=== PATIENT | male | born 1975 | race Caucasian/White ===

== ENCOUNTER 2019-12-28 12:14 | Emergency (ER) | payer OTHER, SELFPAY ==
--- NOTE | ~2019-12-28 | CT_ITS ---
EXAMINATION: CT abdomen pelvis wo con DATE: 12/28/2019 14:24 INDICATION: Abdominal pain. Hematuria. TECHNIQUE: Computed tomography (CT) of the abdomen and pelvis was performed without intravenous contr ast. Automated exposure control and iterative reconstruction technique were employed. Exam dose: 123 0.42 mGy-cm total exam DLP. COMPARISON: None. FINDINGS: Occasional pneumatoceles are noted in the lower lung zones. No pulmonary infiltrate or cons olidation or pulmonary mass lesion is identified. Normal heart size. No pericardial or pleural effusion. The liver, spleen, gallbladder, bile ducts, pancreas, pancreatic duct, and adrenal glands and kidneys are unremarkable. No urinary tract calculus or hydroureteronephrosis is detected. Normal caliber of the abdominal aorta. Normal appendix. There is no evidence of appendicitis. No bowel obstruction or intraperitoneal free a ir. There are some nonspecific right lower quadrant mesenteric lymph nodes measuring up to approximat lui 10 x 21 mm. No periaortic or aortocaval or pelvic lymphadenopathy. No ascites. No bowel obstruction or intraperitoneal free air. There is a small fat-containing left inguinal hernia. There is a fat-containing umbilical hernia and another fat-containing periumbilical hernia. Diffuse idiopathic skeletal hyperostosis of the lower thoracic spine. No suspicious osteolytic or ost eoblastic lesions are noted. IMPRESSION: Mildly prominent right lower quadrant mesenteric lymph nodes, possibly secondary to mese nteric adenitis Normal appendix No urinary tract calculus or hydroureteronephrosis Reviewed, dictated and finalized at [facility]. Reviewed, dictated and finalized at location [facility]. IMPRESSION: Mildly prominent right lower quadrant mesenteric lymph nodes, poss ibly secondary to mesenteric adenitis Normal appendix No urinary tract calculus or hydroureteronephrosis
[2019-12-28 12:23] VITALS: BP 146/99; PULSE 69; RESP 16; TEMP 36.9; O2SAT 99
--- NOTE | 2019-12-28 12:34 | PC.NURSE ---
Reports blood in urine at 0730, denies any since.
[2019-12-28 13:35] LABS: Add Urine Microscopic? YES; Appearance Urine Clear (Clear); Bilirubin Urine Negative (Negative); Blood Urine 1+ (Negative); Color Urine Yellow (Yellow); Glucose Urine UA Negative (Negative); Ketones Urine Negative (Negative); Leukocyte Esterase Ur Negative LEU/UL (Negative); Mucus Urine Rare /lpf; Nitrate Urine Negative (Negative); Protein Urine Negative (Negative); RBC Urine 21-50 /hpf (0-2); Squamous Epithelial Cell Urine Few /hpf (Few); Urobilinogen Urine Negative mg/dL (<2.0); WBC Urine 0-3 /hpf
[2019-12-28 13:38] LABS: Basophils Absolute Auto 0.1 K/mm3 (0.0-0.1); Basophils Percent Auto 0.8 % (0.2-1.2); Eosinophils Absolute Auto 0.2 K/mm3 (0-0.3); Eosinophils Percent Auto 3.5 % (0-4.4); Hematocrit 46.4 % (42.0-52.0); Hemoglobin 15.8 g/dL (14.0-18.0); Immature Granulocyte Absolute 0.01 K/mm3 (0.00-0.031); Immature Granulocyte Percent A 0.2 % (0-0.5); Lymphocytes Absolute Auto 2.59 K/mm3 (0.9-3.2); Lymphocytes Percent Auto 39.3 % (18.3-44.2); Mean Corpuscular HGB Conc 34.1 g/dl (32-36); Mean Corpuscular Hemoglobin 32.3 pg (26-34); Mean Corpuscular Volume 94.9 fl (80-100); Mean Platelet Volume 10.2 fl (7.4-10.4); Monocytes Absolute Auto 0.5 K/mm3 (0.1-0.6); Monocytes Percent Auto 7.9 % (2.6-8.5); Neutrophils Absolute Auto 3.2 K/mm3 (1.3-6.7); Neutrophils Percent Auto 48.3 % (45.5-73.1); Platelet Count Result 216 k/mm3 (150-375); Red Blood Count 4.89 M/mm3 (4.6-6.20); Red Cell Distribution Width 13.5 % (11.5-14.5); White Blood Count 6.6 K/mm3 (4.5-10.0)
--- NOTE | 2019-12-28 13:47 | ED.ABDPAIN ---
HPI - Abdominal Pain General Chief Complaint: Urogenital-Male Stated Complaint: bloody urine, hernial Time Seen by Provider: 12/28/19 13:04 Source: patient Mode of arrival: ambulatory History of Present Illness HPI narrative: Patient is a 44-year-old male who presents to emergency department for evaluation of blood in his urine this morning which has resolved also noting some periumbilical abdominal discomfort during this. Patient presents in no distress patient notes history of umbilical hernia denies any history of urinary symptoms. Patient on arrival in the room in no distress denies injury or trauma MD elicited complaint: abdominal pain Related Data Home Medications Medication Instructions Recorded Confirmed naproxen 500 mg tablet 500 mg PO DAILY tablet 08/20/19 pantoprazole 40 mg tablet,delayed 40 mg PO QAM 08/20/19 release sildenafil 25 mg tablet 25 mg PO DAILY PRN 08/20/19 testosterone 50 mg/5 gram (1 %) 1 packet TRANSDERM DAILY 08/20/19 transdermal gel Allergies Allergy/AdvReac Type Severity Reaction Status Date / Time Penicillins Allergy Unknown Unknown Verified 05/10/19 14:08 Review of Systems Review of Systems: All systems reviewed & are unremarkable except as noted in HPI and below PMFSH Family History Family History (Updated 09/04/19 @ 12:46 by Gabriela Mcconnell, [facility]) Father Carcinoma of colon COPD (chronic obstructive pulmonary disease) Mother Patient's mother is Cerebrovascular accident Social History Social History Smoking status: Current some day smoker Tobacco type: cigarettes Second hand tobacco smoke exposure: No Alcohol intake: current 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 HEAD: Normocephalic, atraumatic. EYES: PERRLA and EOMI. ENT: Nares clear, no rhinorrhea or epistaxis. Mucous membranes moist. CHEST: Clear to auscultation. No respiratory distress. No wheezes rales or rhonchi HEART: Regular rate and rhythm. No murmur heard. Normal peripheral pulses. ABDOMEN: Soft, periumbilical hernia that is easily reducible, nondistended EXTREMITIES: Normal range of motion. No edema. SKIN: Warm, dry, no rash. NEURO: No focal deficits. Alert and oriented x3. PSYCH: Normal mood and affect. Course Course Emergency Course: Patient in the room in no distress aware of case findings treatment plan and diagnosis agreeing to follow-up as directed or to return if symptoms worsen or Vital Signs Vital signs: Vital Signs Temperature 98.5 F 12/28/19 12:23 Pulse Rate 69 12/28/19 12:23 Respiratory Rate 16 12/28/19 12:23 Blood Pressure 146/99 H 12/28/19 12:23 Pulse Oximetry 99 12/28/19 12:23 Temperature 98.5 F 12/28/19 12:23 Pulse Rate 69 12/28/19 12:23 Respiratory Rate 16 12/28/19 12:23 Blood Pressure 146/99 H 12/28/19 12:23 Pulse Oximetry 99 12/28/19 12:23 MDM - Abdominal Pain MDM Narrative Medical decision making narrative: Patient aware of case findings treatment plan and diagnosis agreeing to follow-up as directed or to return if symptoms worsen or concerns. Patient hydrated in the emergency department resting comfortably afebrile nontoxic appearing no high risk changes in the blood work or imaging advised to follow with urology for further evaluation of his hematuria Lab Data Result diagrams: 12/28/19 13:32 12/28/19 13:32 Labs: Lab Results 12/28/19 12/28/19 12/28/19 Range/Units 13:26 13:32 13:32 WBC 6.6 (4.5-10.0) K/mm3 RBC 4.89 (4.6-6.20) M/mm3 Hgb 15.8 (14.0-18.0) g/dL Hct 46.4 (42.0-52.0) % MCV 94.9 (80-100) fl MCH 32.3 (26-34) pg MCHC 34.1 (32-36) g/dl RDW 13.5 (11.5-14.5) % Plt Count 216 (150-375) k/mm3 MP
[2019-12-28 13:52] LABS: Blood Urea Nitrogen 10 mg/dL (9-20); Calcium 9.5 mg/dL (8.4-10.2); Carbon Dioxide 27 mmol/L (22-30); Chloride 103 mmol/L (98-107); Estimated CRCL calculation 129 ml/min; Estimated Glomerular Filt Rate > 60; Glucose 94 mg/dL (75-110); Potassium 4.3 mmol/L (3.4-5.0); Sodium 137 mmol/L (137-145)
== END 2019-12-28 15:20 | disposition home or self-care (01) ==
PROVIDERS: Emergency Medicine Emergency Medical Services; Emergency Provider Emergency Medicine; PCP Physician Assistant
DX: R10.33 Periumbilical pain (principal); R31.9 Hematuria, unspecified; F17.210 Nicotine dependence, cigarettes, uncomplicated
CPT/HCPCS: 36415; 74176; 80048; 81001; 85025; 99284

== ENCOUNTER 2020-08-30 01:09 | Outpatient (CLI) | payer OTHER, SELFPAY ==
[2020-08-30 19:10] LABS: SARS-CoV-2 RNA PCR Negative
== END 2020-08-30 01:10 | disposition home or self-care (01) ==
LOC: ANHCOVIDDT 01:09
PROVIDERS: PCP Physician Assistant; Visit Provider Surgery
DX: Z01.818 Encounter for other preprocedural examination (principal); Z20.828 Contact with and (suspected) exposure to other viral communicable diseases
CPT/HCPCS: 87635; C9803; U0003

== ENCOUNTER 2020-09-02 00:46 | Day surgery (SDC) | payer OTHER, SELFPAY ==
[2020-08-25 13:34] VITALS: BMI 31.4
[2020-09-02] VITALS (9 sets, daily range): BP systolic 114–144; BP diastolic 78–96; PULSE 62–79; RESP 8–20; TEMP 36.2–36.7; O2SAT 95–100
--- NOTE | 2020-09-02 08:32 | WPDANESEPPF ---
Anes - Initial Pre Proc Eval Procedure: Operation Date: 09/02/20 11:00 Proposed Procedures p Laparoscopic Incarcerated Ventral Hernia Repair with Mesh, Davinci Assisted - Adin Carson DO Date/Time: 09/02/20 08:32 Surgeon: Adin Carson DO Pre Op Diagnosis: incarcerated ventral hernia Patient Data Age: 44 Gender: M Height: 1.83 m Weight: 105 kg Allergies Allergy/AdvReac Type Severity Reaction Status Date / Time Penicillins Allergy Unknown Unknown Verified 09/02/20 09:19 Home Medications Medication Instructions Recorded Confirmed Type irbesartan 150 2 tablet PO DAILY #180 tablet 07/09/20 09/02/20 Rx mg-hydrochlorothiazide 12.5 mg tablet sildenafil 25 mg tablet 100 mg PO DAILY PRN #30 tablet 07/09/20 08/25/20 Rx pantoprazole 40 mg PO QAM 08/25/20 09/02/20 History Patient hx anesthesia problems: none Family hx anesthesia problems: none [facility] Past Medical History Medical History (Updated 09/02/20 @ 10:16 by Jason Damon DO) GERD (gastroesophageal reflux disease) Hernia, inguinal, right Hypertension Surgical History Surgical History History of right inguinal hernia repair 12-14 years ago in [place] Hx of tonsillectomy Family History Family History Father Carcinoma of colon COPD (chronic obstructive pulmonary disease) Mother Patient's mother is Cerebrovascular accident Social History Social History Smoking packs per day: 1 Smoking cigarettes per day: 20.0 Years smoked: 20 Smoking pack-years: 20.00 Smoking status: Heavy tobacco smoker Tobacco type: cigarettes and e-cigarettes/vaping Second hand tobacco smoke exposure: No Alcohol intake: current Drinks per week: 10 Living arrangements: with friend(s) 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 Questions were solicited and answers provided to the satisfaction of the patient/family/POA.
--- NOTE | 2020-09-02 09:10 | ECG_ITS ---
Measurements Intervals [place] Rate: 64 P: -45 TN: 167 QRS: 48 QRSD: 92 T: 41 QT: 386 QTc: 401 Interpretive Statements SINUS RHYTHM NORMAL ECG Electronically Signed On 09-02-2020 9:40:20 [employer] by Louie Govea D.O.
[2020-09-02] MEDS: ACETAMINOPHEN 500 MG TABLET 1000 MG PO (09:25)
[2020-09-02] MEDS: LACTATED RINGERS 1,000 ML 30 ML IV CONT ×2 (09:25→14:40)
[2020-09-02] MEDS: KETOROLAC 15 MG/ML VIAL (*BKC) IV PUSH (09:34)
[2020-09-02 09:55] LABS: Anion Gap 6 mmol/L (8-16); Blood Urea Nitrogen 23 mg/dL (9-20); Calcium 9.8 mg/dL (8.4-10.2); Carbon Dioxide 27 mmol/L (22-30); Chloride 106 mmol/L (98-107); Estimated CRCL calculation 118 ml/min; Estimated Glomerular Filt Rate > 60; Glucose 111 mg/dL (75-110); Potassium 4.1 mmol/L (3.4-5.0); Sodium 139 mmol/L (137-145)
--- NOTE | 2020-09-02 11:07 | SUR.PREOP ---
pt informed of delay w/surgeon/acknowledges understanding/ s/o informed by pt of delay at this time via personal cellphone. comfort measures offered/denies needs.
--- NOTE | 2020-09-02 11:17 | PM.IMHP ---
H&P: HPI History of Present Illness Date/Time: 09/02/20 11:17 Chief complaint: incarcerated ventral hernia Narrative: Vincent Restrepo is a 44 year old male who presents for incarcerated ventral hernia repair. He reports no changes since seen in office. Review of Systems Review of Systems: All systems reviewed & are unremarkable except as noted in HPI and below Constitutional: Constitutional: Denies chills, Denies fever(s), Denies headache(s) and Denies weight loss Eyes: Eyes: Denies change in vision ENT: Denies dizziness, Denies headache(s), Denies neck mass and Denies throat swelling Cardiovascular: Cardiovascular: Denies chest pain, Denies lightheadedness and Denies dyspnea Respiratory: Respiratory: Denies cough, Denies dyspnea and Denies wheezing Gastrointestinal: Gastrointestinal: Denies abdominal pain, Denies change in bowel habits, Denies nausea and Denies vomiting Genitourinary: Genitourinary: Denies hematuria and Denies dysuria Musculoskeletal: Musculoskeletal: Reports as per HPI Integumentary/Breasts: Skin/Breast: Reports as per HPI Neurologic: Denies dizziness and Denies headache(s) Allergic/Immunologic: Allergic/Immunologic: Denies throat swelling and Denies wheezing [facility] Past Medical History Medical History GERD (gastroesophageal reflux disease) Hernia, inguinal, right Hypertension Surgical History Surgical History History of right inguinal hernia repair 12-14 years ago in [place] Hx of tonsillectomy Family History Family History Father Carcinoma of colon COPD (chronic obstructive pulmonary disease) Mother Patient's mother is Cerebrovascular accident Social History Social History Smoking packs per day: 1 Smoking cigarettes per day: 20.0 Years smoked: 20 Smoking pack-years: 20.00 Smoking status: Heavy tobacco smoker Tobacco type: cigarettes and e-cigarettes/vaping Second hand tobacco smoke exposure: No Alcohol intake: current Drinks per week: 10 Living arrangements: with friend(s) 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 Gender identity (if verbalized by the patient): Male Meds Home Medications and Allergies Home Medications Medication Instructions Recorded Confirmed Type irbesartan 150 2 tablet PO DAILY #180 tablet 07/09/20 09/02/20 Rx mg-hydrochlorothiazide 12.5 mg tablet sildenafil 25 mg tablet 100 mg PO DAILY PRN #30 tablet 07/09/20 08/25/20 Rx pantoprazole 40 mg PO QAM 08/25/20 09/02/20 History Allergies Allergy/AdvReac Type Severity Reaction Status Date / Time Penicillins Allergy Unknown Unknown Verified 09/02/20 09:19 Vital Signs Vital Signs - 24 hr 09/02/20 09:05 Temperature 36.2 C L Pulse Rate 72 Respiratory Rate 20 Blood Pressure 144/80 H Pulse Oximetry 99 Exam Const: General: no acute distress and alert Orientation/consciousness: patient oriented x3 HENMT: Head: normocephalic and atraumatic Ears: hearing grossly normal bilaterally General nose exam: Normal nares present Mouth: Yes Normal oral and palatal mucosa present Eyes: Periorbital: periorbital findings normal Sclera: sclerae normal EOM: EOMs intact bilaterally Neck: Neck: normal visual inspection, no lymphadenopathy and trachea midline Chest: Chest palpation & inspection: normal inspection of the chest Resp: Effort & Inspection: normal respiratory effort Auscultation: clear to auscultation bilaterally Cardio: Jugular venous distension: no JVD Rate: regular rate Rhythm: regular rhythm Heart sounds: S1 normal heart sound present and S2 normal heart sound present Peripheral pulses: Peripheral pulses 2+ throughout GI: Inspection: normal to inspection GI Palp: Yes Soft to palpation, No T
--- NOTE | 2020-09-02 11:19 | WPDHPUPDATE1 ---
History and Physical Update Update Date/Time: 09/02/20 11:19 History and Physical has been reviewed, including an updated exam of the patient. There are NO changes in the patient's condition. Risks, benefits, and alternatives have been discussed and questions answered. Patient agrees to proceed with procedure.
[2020-09-02] MEDS: ceFAZolin 2 GM/D5W 50 ML 2 GM/50 ML BAG IVPB (12:07)
--- NOTE | 2020-09-02 13:36 | SUR.OPER ---
mesh to sterile field 1336. Symbotex [id number], Exp 2025-01-07.
--- NOTE | 2020-09-02 14:31 | PM.PROC ---
Procedure Note - Detailed Date of procedure: 09/02/20 Pre-op diagnosis: incarcerated ventral hernia Post-op diagnosis: same Procedure performed: Laparoscopic incarcerated ventral hernia repair with Symbotex mesh, da Curtis assisted Description of procedure: Procedure as well as risks, benefits, and alternatives were discussed with the patient. Written consent was obtained and placed in chart prior to procedure. Patient was brought back to surgical suite. He was placed supine on operating table. Time-out was done to confirm patient and procedure. He was then intubated by the anesthesia department. A bump was placed under his left hip, and the bed was flexed slightly to extend the space between his costal margin and iliac crest. His abdomen was prepped and draped in sterile fashion using chlorhexidine prep. A 5 millimeter incision was made in the left upper quadrant, and a 5 millimeter Optiview trocar was advanced through the abdominal layers under direct visualization. Once inside the abdominal cavity, carbon dioxide insufflation was used to create a pneumoperitoneum. His abdomen was inspected. An 8 millimeter incision was made in the left lower quadrant, and an 8 millimeter robotic trocar was placed under direct visualization. Another 8 millimeter incision was made in the left lateral abdomen, and an 8 millimeter robotic trocar was placed under direct visualization. Exparel was infiltrated along the lateral abdominal simmons to perform a transversus abdominis plane block bilaterally. The 5 millimeter port was removed, the incision was extended to 12 millimeters, and a 12 millimeter air seal port was placed under direct visualization. A John-Houston cone was also used to place an 0-Vicryl simple interrupted suture at this trocar site. The robotic arms were brought up to the patient's bedside and secured to the ports. The camera and instruments were inserted, and I then moved over to the robotic console and took control of the camera and instruments. After careful thorough inspection of the abdominal cavity, I began my dissection at the hernia. The incarcerated omentum was reduced using careful dissection with scissors with electrocautery. A preperitoneal pocket was then created by starting in the left upper quadrant and extending caudally along the preperitoneal plane. The hernia sac and preperitoneal fat was then reduced from the hernia defect and the preperitoneal plane was extended laterally and caudally far enough to allow for mesh placement. I then measured the hernia size. The hernia measured 2 cm x 3 cm. The fascia was closed using an 1-Stratafix running suture in a vertical fashion. A 10cm x 15cm Symbotex mesh was then placed within the preperitoneal pocket. The mesh was centered on the hernia defect and secured at the 4 corners using 3 0 Vicryl simple interrupted sutures and another suture was placed at the center of the mesh. The mesh appeared to be sitting in proper position. The peritoneum was then closed over the mesh using 2 0 V lock running absorbable suture. A laparoscopic aspirating needle was inserted into the preperitoneal pocket and the air within the pocket was aspirated. The repair was inspected, and one final inspection was made around the abdominal cavity. The robotic instruments were then removed, and the robotic arms were disengaged from the trocars. The ports were then removed under direct visualization, the camera was removed, and the pneumoperitoneum was released. The 0 Vicryl transfascial suture was tied down. The skin of the incisions was then approximated using 4-0 Monocryl subcuticular suture. Exofin glue was then applied on top. The patient was then awakened from anesthesia, extubated, and transferred to recovery. Implants: Symbotex 10cm x15cm Anesthesia: GETA and local (Exparel) Surgeon: Adin Carson DO Estimated blood loss (mL): 5 Drains: No Complications: No immediate complications Condition: stable Fin
[2020-09-02] MEDS: fentaNYL CITRATE INJ (*CRX) 100 MCG/2 ML VIAL 25 MCG IV PUSH ×7 (15:05→15:44)
--- NOTE | 2020-09-02 15:33 | SUR.PHASEI ---
PT AWAKE, TALKATIVE NOW
--- NOTE | 2020-09-02 15:49 | SUR.PHASEI ---
pt awake and alert. ready to go to [facility]
[2020-09-02] MEDS: oxyCODONE HCL (*CRX) 5 MG TAB IR PO (16:02)
== END 2020-09-02 17:00 | disposition home or self-care (01) ==
PROVIDERS: Anesthesiology; PCP Physician Assistant; Visit Provider Surgery
PROC: (CPT 49653; principal; 2020-09-02 11:00)
DX: K43.6 Other and unspecified ventral hernia with obstruction, without gangrene (principal); I10 Essential (primary) hypertension; K21.9 Gastro-esophageal reflux disease without esophagitis; F17.290 Nicotine dependence, other tobacco product, uncomplicated; F17.210 Nicotine dependence, cigarettes, uncomplicated; E66.9 Obesity, unspecified; Z68.33 Body mass index [BMI] 33.0-33.9, adult
CPT/HCPCS: 49653; S2900; 36415; 80048; 86850; 86900; 86901; 93005; A9270; C1781; C9290; J0690; J1100; J1885; J2250; J2405; J2704; J2710; J3010; J7120

== ENCOUNTER 2020-11-19 13:51 | Outpatient (CLI) | payer OTHER, SELFPAY ==
--- NOTE | ~2020-11-19 | US_ITS ---
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 TECHNIQUE: Segmental pressures and plethysmographic and Doppler waveforms of the brachial and lower e xtremity arteries were obtained. COMPARISON: None. FINDINGS: Right and left brachial artery pressures of 101 mm Hg and 104 mm Hg, respectively, are concordant (no rmal difference <= 30 mmHg). The right high-thigh pressure index is 1.48 (normal > 1.2). The right ankle-brachial index (MARIANNE) is 1 .18 (normal >= 0.9-1.0). The right great toe-brachial index (TBI) is 1.16 (normal >= 0.60). The right lower extremity segmental pressure gradients are normal (normal gradients <= 20-30 mmHg between jagjit cent levels on the same leg or the same levels on the two legs). Arterial Doppler waveforms are mixed biphasic and triphasic. The left high-thigh pressure index is 1.27. The left MARIANNE is 1.15. The left TBI is 1.12. The left lowe r extremity segmental pressure gradients are normal. Arterial Doppler waveforms are mixed biphasic an d triphasic. IMPRESSION: 1. Normal lower extremity arterial Doppler Reviewed, dictated and finalized at location B. KNITTER
== END 2020-11-19 13:52 | disposition home or self-care (01) ==
LOC: ANHIMG 14:06
PROVIDERS: PCP Internal Medicine; Visit Provider Physician Assistant
DX: I73.9 Peripheral vascular disease, unspecified (principal)
CPT/HCPCS: 93923

== ENCOUNTER 2021-09-01 10:10 | Outpatient (CLI) | payer OTHER, SELFPAY ==
--- NOTE | ~2021-09-01 | XR_ITS ---
EXAMINATION: XR cervical spine 4-5V EXAM DATE: 09/01/2021 10:32 INDICATION: Numbness of skin back of neck. TECHNIQUE: Cervical spine frontal, lateral, lateral swimmers, and open-mouth odontoid projections. C omparison is made to prior examination from 03/16/2019. FINDINGS: There is moderate disc disease and moderate uncovertebral joint arthropathy at C4-5. Evide nce of some neural foraminal stenosis at this level. There is 3 mm retrolisthesis at this level. The vertebral bodies are otherwise aligned. Less arthropathy at the other levels. There is mild disc dise ase at C6-7. The vertebral body and disc heights are otherwise well maintained. Lung apices are clear . Mild progression in C4-5 spondylosis compared to 2019. IMPRESSION: C4-5 moderate spondylosis, mild interval progression. Reviewed, dictated and finalized at location A. 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
[2021-09-05 14:48] LABS: Testosterone Free 43.7 pg/mL (35.0-155.0); Testosterone Total 336 ng/dL (250-1100)
== END 2021-09-01 10:11 | disposition home or self-care (01) ==
PROVIDERS: PCP Physician Assistant; Visit Provider Physician Assistant
DX: R53.83 Other fatigue (principal); R20.0 Anesthesia of skin; R20.2 Paresthesia of skin; M47.892 Other spondylosis, cervical region
CPT/HCPCS: 36415; 72050; 84402; 84403

== ENCOUNTER 2022-08-05 08:08 | Outpatient (CLI) | payer BC, MEDICAID, SELFPAY ==
--- NOTE | ~2022-08-05 | NM_ITS ---
EXAMINATION: NM nick stress w perfusion DATE: 08/05/2022 11:28 CDT INDICATION: Chest pain TECHNIQUE: Rest images were obtained following intravenous administration of 10.4 mCi Tc99m tetrofosm in (Myoview). The patient was infused intravenously with Lexiscan (regadenoson). Then, 33.6 mCi Tc99m tetrofosmin (Myoview) was administered intravenously, and stress images were obtained. Data was hillary nstructed into short axis and horizontal and vertical long axis SPECT images. Gated SPECT images were also obtained. COMPARISON: None. FINDINGS: There is no definite reversible or fixed perfusion abnormality to suggest ischemia or infar ction. There is no segmental wall motion abnormality. Left ventricular ejection fraction measures 6 3%. IMPRESSION: 1. No definite ischemia or infarct. 2. Normal left ventricular ejection fraction measuring 63%. Reviewed, dictated and finalized at location B.
--- NOTE | 2022-08-05 08:25 | EST_ITS ---
Patient Info Name: Vincent Restrepo Age: 46 years : 1975 Gender: Male Ht: 72 in Wt: 240 lbs BSA: 2.38 m2 Exam Date: 08/05/2022 9:13 AM Exam Location: [facility] Stress Patient Status: Outpatient Admit Date: 08/05/2022 Staff Ordering Physician: Michele Ceron PA-C Attending Provider: Michele Ceron PA-C Exercise Technologist: Julia Emanuel RDCS Exercise Physician: Louie Govea DO Exam Type: CA stress nick w NM Study Info Indications R07.9 - Chest pain, unspecified A regadenoson stress test was performed. Summary 1. 1. Negative lexiscan stress test for ischemic ST changes by ECG criteria. 2. 2. Stable hemodynamics throughout the test. 3. 3. Nuclear scan to follow and will be reported separately. Please correlate with it. 4. 4. Patient informed of the above results. Protocol: Lexiscan Stress ECG Details Stage: REST Duration (min): 1 min : 22 sec HR (bpm): 52 SBP (mmHg): 110 DBP (mmHg): 75 Stage: REST Duration (min): 15 min : 27 sec HR (bpm): 53 SBP (mmHg): 110 DBP (mmHg): 75 Stage: STAGE 1 Duration (min): 0 min : 59 sec HR (bpm): 67 SBP (mmHg): 127 DBP (mmHg): 91 Stage: RECOVERY Duration (min): 1 min : 0 sec HR (bpm): 78 SBP (mmHg): 133 DBP (mmHg): 88 Stage: RECOVERY Duration (min): 2 min : 0 sec HR (bpm): 74 SBP (mmHg): 133 DBP (mmHg): 88 Stage: RECOVERY Duration (min): 3 min : 0 sec HR (bpm): 71 SBP (mmHg): 137 DBP (mmHg): 91 Stage: RECOVERY Duration (min): 3 min : 5 sec HR (bpm): 70 SBP (mmHg): 137 DBP (mmHg): 91 Rest HR: 53 bpm Peak HR: 79 bpm Rest Sys BP: 110 mmHg Peak Sys BP: 137 mmHg Max Pred HR: 173 bpm % Max Pred HR: 46 % Target HR: 147 bpm Max RPP: 10,823 bpm*mmHg Termination Reason: Completed protocol Cardiac Symptoms: Shortness of breath Total Time: 1 min : 0 sec Rest Christian BP: 75 mmHg Peak Christian BP: 91 mmHg Total Dose: 0.4 mg Resting ECG Sinus rhythm, low voltage in limb leads. Stress ECG No ST changes. Arrhythmias None. Report Signatures
[2022-08-05 10:44] LABS: Basophils Absolute Auto 0.1 K/mm3 (0.0-0.1); Basophils Percent Auto 0.9 % (0.2-1.2); Eosinophils Absolute Auto 0.2 K/mm3 (0-0.3); Eosinophils Percent Auto 2.8 % (0-4.4); Hematocrit 43.2 % (42.0-52.0); Hemoglobin 15.3 g/dL (14.0-18.0); Immature Granulocyte Absolute 0.02 K/mm3 (0.00-0.031); Immature Granulocyte Percent A 0.3 % (0-0.5); Lymphocytes Absolute Auto 2.78 K/mm3 (0.9-3.2); Lymphocytes Percent Auto 40.5 % (18.3-44.2); Mean Corpuscular HGB Conc 35.4 g/dl (32-36); Mean Corpuscular Hemoglobin 32.8 pg (26-34); Mean Corpuscular Volume 92.5 fl (80-100); Monocytes Absolute Auto 0.7 K/mm3 (0.1-0.6); Monocytes Percent Auto 9.5 % (2.6-8.5); Neutrophils Absolute Auto 3.2 K/mm3 (1.3-6.7); Platelet Count Result 210 k/mm3 (150-375); Red Blood Count 4.67 M/mm3 (4.6-6.20); White Blood Count 6.9 K/mm3 (4.5-10.0)
[2022-08-05 10:56] LABS: Alanine Aminotransferase 28 U/L (6-50); Albumin Level 4.4 g/dL (3.5-5.1); Alkaline Phosphatase 79 U/L (38-126); Anion Gap 10 mmol/L (8-16); Aspartate Amino Transferase 31 U/L (17-59); Bilirubin,Total 1.8 mg/dL (0.2-1.3); Blood Urea Nitrogen 16 mg/dL (9-20); Calcium 9.1 mg/dL (8.4-10.2); Carbon Dioxide 30 mmol/L (22-30); Chloride 101 mmol/L (98-107); Cholesterol 160 mg/dL (0-200); Estimated Glomerular Filt Rate > 60; Glucose 100 mg/dL (65-110); HDL Direct 34 mg/dL; Potassium 3.4 mmol/L (3.4-5.0); Sodium 141 mmol/L (137-145); Triglycerides 182 mg/dL (<150)
[2022-08-05 11:07] LABS: LDL Cholesterol Direct 107 mg/dL
[2022-08-05 11:27] LABS: Prostate Specific Antigen 1.4 ng/mL (< OR = 4.0)
[2022-08-05 12:03] LABS: Folic Acid 3.4 ng/mL (2.76->20)
== END 2022-08-05 08:09 | disposition home or self-care (01) ==
PROVIDERS: PCP Physician Assistant; Visit Provider Physician Assistant
DX: Z00.00 Encounter for general adult medical examination without abnormal findings (principal); Z12.5 Encounter for screening for malignant neoplasm of prostate; R07.9 Chest pain, unspecified
CPT/HCPCS: 36415; 78452; 80053; 80061; 82607; 82746; 84153; 84443; 85025; 93017; A9502; G0103; J2785

== ENCOUNTER 2023-09-20 15:55 | Outpatient (CLI) | payer BC, MEDICAID, SELFPAY ==
--- NOTE | ~2023-09-20 | CT_ITS ---
Clinical Indication: Hemoptysis CT Scan of the Chest with Contrast: Technique: Contiguous sections were acquired throughout the chest after intravenous administration of 75 cc of Omnipaque 350. Dose reduction technique was used on this scan by utilizing automated exposu re control and iterative reconstruction technique. The dose-length product (DLP) was 590.26 mGy-cm. Findings: There is no evidence of any significant mediastinal, hilar or axillary lymphadenopathy. There is no f illing defect in the pulmonary arterial tree to suggest pulmonary embolus. There is no evidence of ao rtic dissection or aneurysm. There is no evidence of pleural or pericardial effusion. The lungs are clear, aside from several calcified granulomas. Images through the upper abdomen reveal diffuse fatty infiltration of the liver. Impression: No distinct etiology for hemoptysis identified. Evidence of prior granulomatous disease. Diffuse fatty infiltration of liver. Reviewed, dictated and finalized at [facility]. L MOULDER Impression: No distinct etiology for hemoptysis identified. Evidence of prior granulomatous disease. Diffuse fatty infiltration of liver.
[2023-09-20 16:31] LABS: Estimated Glomerular Filt Rate > 60
== END 2023-09-20 15:56 | disposition home or self-care (01) ==
PROVIDERS: PCP Physician Assistant; Visit Provider Physician Assistant
DX: R04.2 Hemoptysis (principal); K76.0 Fatty (change of) liver, not elsewhere classified
CPT/HCPCS: 71260; Q9967

== ENCOUNTER 2023-09-26 08:30 | Outpatient (CLI) | payer BC, MEDICAID, SELFPAY ==
--- NOTE | 2023-10-17 17:50 | WPDSLEEPSTUD ---
Sleep Study Date of Study: 09/26/23 Ordering Provider: Charly Jaam APRN Interpreting Physician: Heena Bass MD Sleep Study Type: BiPAP Titration Height: 1.83 m Weight: 121.563 kg Body Mass Index: 36.3 Neck Circumference (inches): 20 [place]: 7 Reason for Sleep Study history of obstructive sleep apnea, needs a retitration * HST 03/13/19 ? severe sleep apnea, AHI 76.7, lowest O2 64% with 33% of study below 88% saturation. CPAP Titration recommended but not done. He was set-up on APAP since this study. Sleep History Vincent Restrepo is a 47-year-old man with a history of severe obstructive sleep apnea, diagnosed on a home sleep test in 2019 treated with auto PAP. He constantly awakens from sleep feeling short of breath. He constantly wakes at night with heartburn, belching or coughing.??He constantly snores, constantly snores loudly enough that others complain. He frequently has trouble sleeping when he has a cold. He constantly wakes up gasping for breath during the night. He constantly has breathing problems at night. He occasionally sweats excessively at night. He constantly notices his heart pounding or beating irregularly during the night. He constantly falls asleep during the day. He constantly falls asleep involuntarily, frequently falls asleep while driving. He constantly experiences loss of muscle tone with strong emotion. He occasionally has daytime difficulty at work due to excessive sleepiness. He frequently feels paralyzed on waking or falling asleep. He constantly experiences vivid dreams upon waking or falling asleep. He occasionally feels afraid of going to sleep. He constantly has nightmares. He frequently recalls his dreams. He constantly has thoughts racing through his mind. He occasionally feels sad or depressed. He constantly feels anxiety. He frequently notices parts of his body jerk. He constantly kicks during the night. He constantly feels crawling or aching feelings in his legs. He frequently feels leg pain at night. He rarely has morning jaw pain, rarely grinds his teeth at night. He rarely feels bothered by pain during the day, rarely is awakened by pain during the night. He rarely wakes up feeling stiff in the morning, and he occasionally wakes feeling sore or achy. He occasionally awakens with pain in his neck, spine, or joints. Normal bedtime is 9:30 p.m., falling asleep within 1/2 hour, waking waking frequently during the night. Wake time is 6:15 a.m.. He typically gets 5 hours of sleep per night. He takes no naps in the day. he is drowsy for 2 hours after waking. He feels better in the afternoon compared to other times of day. Habits:??Tobacco: 1 pack per day Caffeine: coffee and soda. Alcohol: none. Recreational substances: none [facility] Past Medical History Medical History GERD (gastroesophageal reflux disease) Hernia, inguinal, right Hypertension TAN (obstructive sleep apnea) Surgical History Surgical History H/O ventral hernia repair 09/02/20 Laparoscopic incarcerated ventral hernia repair with Symbotex mesh, da Curtis assisted History of right inguinal hernia repair 12-14 years ago in [facility] of tonsillectomy Family History Family History Father Carcinoma of colon COPD (chronic obstructive pulmonary disease) Mother Patient's mother is Cerebrovascular accident Social History Social History Smoking packs per day: 1 Smoking cigarettes per day: 20.0 Years smoked: 20 Smoking pack-years: 20.00 Smoking status: Current every day smoker Tobacco type: cigarettes and e-cigarettes/vaping Second hand tobacco smoke exposure: No Alcohol intake: current Drinks per week: 10 Living arrangements: with friend(s) Occupation/Education:
[2023-10-17 17:57] VITALS: BMI 36.3
== END 2023-09-27 06:55 | disposition home or self-care (01) ==
LOC: ANHCSM 08:31
PROVIDERS: PCP Physician Assistant; Visit Provider Nurse Practitioner Family
DX: G47.33 Obstructive sleep apnea (adult) (pediatric) (principal)
CPT/HCPCS: 95811